=== PATIENT | male | born 1960 | race Caucasian/White ===

== ENCOUNTER 2019-10-15 17:24 | Emergency (ER) | payer OTHER ==
[~2019-10-15] VITALS: Ht 177.8 cm; Wt 72.6 kg
[2019-10-15] MEDS ORDERED: ONDANSETRON ODT8 MG PO (19:14)
[2019-10-15] MEDS ORDERED: PROMETHAZINE HC25 M1 PO (19:14)
== END 2019-10-15 19:58 | disposition home or self-care (01) ==
LOC: ED 17:24
DX: S06.0X0A Concussion without loss of consciousness, initial encounter (principal); S01.81XA Laceration without foreign body of other part of head, initial encounter; R11.2 Nausea with vomiting, unspecified; W01.0XXA Fall on same level from slipping, tripping and stumbling without subsequent striking against object, initial encounter
CPT/HCPCS: 12011; 70450; 90471; 90715; 99284-25

== ENCOUNTER 2021-12-14 19:03 | Emergency (ER) | payer OTHER ==
[~2021-12-14] VITALS: Ht 177.8 cm; Wt 84.4 kg
[~2021-12-14 19:03] MED LIST: ONDANSETRON ODT8 MG PO; PROMETHAZINE HC25 M1 PO
[2021-12-14] MEDS ORDERED: HYDROCHLOROTH12.5 MG PO (19:33)
[2021-12-14] MEDS ORDERED: CYCLOBENZAPRINE5 MG PO (22:51)
== END 2021-12-14 23:55 | disposition home or self-care (01) ==
LOC: ED 19:03
DX: S40.022A Contusion of left upper arm, initial encounter (principal); I10 Essential (primary) hypertension; X50.3XXA Overexertion from repetitive movements, initial encounter; Z79.899 Other long term (current) drug therapy
CPT/HCPCS: 36415; 80048; 99284-25; Q9967